=== PATIENT | female | born 1960 | race Caucasian/White ===

== ENCOUNTER 2019-10-13 10:57 | Observation (INO) ==
[2019-10-13 11:27] LABS: Basophils % 0.4 %; Eosinophils % 0.2 %; Hematocrit 36.9 % (35.3-44.9); Hemoglobin 11.9 g/dL (11.5-15.4); Immature Granulocytes % 0.5 % (0-4); Lymphocytes # 0.8 K/mcL (0.6-4.6); Lymphocytes % 9.8 %; Mean Corpuscular HGB Conc 32.2 g/dL (31.6-35.5); Mean Corpuscular Hemoglobin 28.3 pg (28.0-33.3); Mean Corpuscular Volume 87.9 fL (83.0-100.0); Mean Platelet Volume 11.1 fL (9.4-12.4); Monocytes # 1.1 K/mcL (0.0-1.3); Monocytes % 12.9 %; Neutrophils # 6.3 K/mcL (1.6-8.9); Platelet Count 149 K/mcL (140-400); Red Cell Distribution Width 18.7 % (11.5-14.5); Segmented Neutrophils % 76.2 %; White Blood Count 8.3 K/mcL (4.3-11.1)
[2019-10-13] MEDS ORDERED: Ondansetron 4 MG/2 ML VIAL IVP ONE (11:30)
[2019-10-13] MEDS ORDERED: *HR* FentaNYL (PF) 100 MCG/2 ML VIAL IVP ONE (11:30)
[2019-10-13] MEDS ORDERED: 0.9 % Sodium Chloride 1,000 ML IVC ONE (11:30)
[2019-10-13 11:34] LABS: Bilirubin,Urine Negative (Negative); Blood,Urine Small (Negative); Clarity,Urine Ex.Turbid (Clear); Color,Urine Yellow (Yellow); Glucose,Urine (UA) Normal (Normal); Ketones,Urine Negative (Negative); Leukocyte Esterase,Urine Large (Negative); Nitrite,Urine Positive (Negative); PH,Urine 5.5 pH Units (5.0-8.0); Protein,Urine 50 mg/dL (Neg-Trace); Specific Gravity,Urine 1.019 (1.010-1.025)
[2019-10-13 11:39] LABS: INR 1.5
[2019-10-13 11:41] LABS: Activated Partial Thrombo Time 32.1 Seconds (26.0-36.0)
[2019-10-13 11:44] LABS: Alanine Aminotransferase 16 Units/L (7-52); Albumin/Globulin Ratio 0.8 (1.1-2.2); Alkaline Phosphatase 110 Units/L (34-104); Aspartate Amino Transferase 17 Units/L (13-39); BUN/Creatinine Ratio 17 (6-26); Bilirubin,Direct 0.2 mg/dL (0.0-0.2); Bilirubin,Indirect 0.4 mg/dL (0.0-1.0); Bilirubin,Total 0.6 mg/dL (0.3-1.0); Blood Urea Nitrogen 19 mg/dL (6-20); Calcium 9.4 mg/dL (8.6-10.3); Carbon Dioxide 23 mEq/L (23-29); Chloride 98 mEq/L (98-107); Creatine Kinase 125 Units/L (30-223); Glucose 161 mg/dL (70-105); Lipase 39 Units/L (11-82); Osmolality,Calculated 278 (280-300); Potassium 2.7 mEq/L (3.5-5.1); Sodium 131 mEq/L (136-145); Troponin I < 0.03 ng/mL (< 0.04); eGFR For African Americans > 60 (> 60); eGFR For Non-African Americans 50 (> 60)
[2019-10-13 11:45] LABS: Bacteria,Urine Many per hpf (None-Few); RBC,Urine 0-3 per hpf (0-3); Squamous Epithelial Cell,Urine Moderate per hpf (None-Few); WBC,Urine 50-100 per hpf (0-3)
[2019-10-13] MEDS ORDERED: cephALEXin 500 MG CAPSULE PO STA (11:47)
[2019-10-13] MEDS ORDERED: cefTRIAXone 1,000 MG in Water for inj. (sterile) 10 ML IVP ONE (11:49)
[2019-10-13] MEDS ORDERED: Potassium Chloride Elixir 20 MEQ/15 ML UDC PO ONE (12:02)
[2019-10-13 12:20] LABS: Magnesium 2.2 mg/dL (1.6-2.6)
[2019-10-13] MEDS ORDERED: Perflutren Lipid Microsphere 1.3 ML in 0.9 % Sodium Chloride 8.7 ML IVP PRN (13:39)
[2019-10-13] MEDS ORDERED: Ondansetron 4 MG/2 ML VIAL IVP PRN (13:43)
[2019-10-13] MEDS ORDERED: Naloxone 0.4 MG/ML INJ IVP PRN (13:43)
[2019-10-13] MEDS ORDERED: SUMAtriptan succinate 50 MG TABLET PO PRN (13:58)
[2019-10-13] MEDS ORDERED: Acetaminophen/Aspirin/Caffeine TABLET PO PRN (13:58)
[2019-10-13] MEDS: *HR* Heparin 5,000 UNIT/ML VIAL SQ SCH (17:42)
[2019-10-13] MEDS: 0.9 % Sodium Chloride 1,000 ML IVC SCH (19:56)
[2019-10-13] MEDS: Topiramate 100 MG TABLET PO SCH (20:25)
[2019-10-13] MEDS: Acetaminophen 325 MG TABLET PO PRN (20:25)
[2019-10-13] MEDS: Sennosides 8.6 MG TABLET PO SCH (20:25)
[2019-10-14 01:34] LABS: Basophils % 0.4 %; Eosinophils # 0.1 K/mcL (0.0-0.6); Eosinophils % 1.9 %; Hematocrit 31.3 % (35.3-44.9); Immature Granulocytes % 0.4 % (0-4); Lymphocytes # 0.8 K/mcL (0.6-4.6); Lymphocytes % 15.1 %; Mean Corpuscular HGB Conc 31.6 g/dL (31.6-35.5); Mean Corpuscular Volume 88.7 fL (83.0-100.0); Mean Platelet Volume 11.3 fL (9.4-12.4); Monocytes # 0.8 K/mcL (0.0-1.3); Monocytes % 15.1 %; Neutrophils # 3.5 K/mcL (1.6-8.9); Platelet Count 138 K/mcL (140-400); Red Blood Count 3.53 M/mcL (3.82-4.97); Segmented Neutrophils % 67.1 %; White Blood Count 5.2 K/mcL (4.3-11.1)
[2019-10-14 01:36] LABS: Hemoglobin 9.9 g/dL (11.5-15.4)
[2019-10-14 01:51] LABS: BUN/Creatinine Ratio 17 (6-26); Blood Urea Nitrogen 14 mg/dL (6-20); Calcium 8.5 mg/dL (8.6-10.3); Carbon Dioxide 20 mEq/L (23-29); Chloride 108 mEq/L (98-107); Glucose 114 mg/dL (70-105); Osmolality,Calculated 281 (280-300); Potassium 2.8 mEq/L (3.5-5.1); Sodium 135 mEq/L (136-145); eGFR For African Americans > 60 (> 60); eGFR For Non-African Americans > 60 (> 60)
[2019-10-14] MEDS: *HR* Heparin 5,000 UNIT/ML VIAL SQ SCH ×2 (05:48→15:29)
[2019-10-14] MEDS: cefTRIAXone 1,000 MG in Water for inj. (sterile) 10 ML IVP SCH (08:21)
[2019-10-14] MEDS: 0.9 % Sodium Chloride 1,000 ML IVC SCH (08:24)
[2019-10-14] MEDS: Topiramate 100 MG TABLET PO SCH ×2 (08:32→19:59)
[2019-10-14] MEDS: BuPROPion SR (12 HR) 150 MG TABLET PO SCH (08:32)
[2019-10-14] MEDS ORDERED: Perflutren Lipid Microsphere 1.3 ML in 0.9 % Sodium Chloride 8.7 ML IVP PRN (11:18)
[2019-10-14] MEDS: Acetaminophen 325 MG TABLET PO PRN (15:28)
[2019-10-14] MEDS: Sennosides 8.6 MG TABLET PO SCH (19:58)
[2019-10-15] MEDS ORDERED: Benzonatate 100 MG CAPSULE PO PRN (00:52)
[2019-10-15 03:09] LABS: Hematocrit 30.3 % (35.3-44.9); Hemoglobin 9.6 g/dL (11.5-15.4); Mean Corpuscular HGB Conc 31.7 g/dL (31.6-35.5); Mean Corpuscular Hemoglobin 28.7 pg (28.0-33.3); Mean Corpuscular Volume 90.4 fL (83.0-100.0); Mean Platelet Volume 11.1 fL (9.4-12.4); Platelet Count 132 K/mcL (140-400); Red Blood Count 3.35 M/mcL (3.82-4.97); Red Cell Distribution Width 19.1 % (11.5-14.5); White Blood Count 3.2 K/mcL (4.3-11.1)
[2019-10-15 03:31] LABS: BUN/Creatinine Ratio 12 (6-26); Blood Urea Nitrogen 9 mg/dL (6-20); Calcium 8.7 mg/dL (8.6-10.3); Carbon Dioxide 19 mEq/L (23-29); Chloride 112 mEq/L (98-107); Glucose 140 mg/dL (70-105); Osmolality,Calculated 285 (280-300); Potassium 3.8 mEq/L (3.5-5.1); Sodium 137 mEq/L (136-145); eGFR For African Americans > 60 (> 60); eGFR For Non-African Americans > 60 (> 60)
[2019-10-15] MEDS: *HR* Heparin 5,000 UNIT/ML VIAL SQ SCH (05:51)
[2019-10-15] MEDS: cefTRIAXone 1,000 MG in Water for inj. (sterile) 10 ML IVP SCH (07:28)
[2019-10-15] MEDS: Topiramate 100 MG TABLET PO SCH (07:28)
[2019-10-15] MEDS: BuPROPion SR (12 HR) 150 MG TABLET PO SCH (07:28)
[2019-10-15 08:07] VITALS: BP 112/74
== END 2019-10-15 11:26 | disposition home or self-care (01) ==
LOC: EMEROOARM 10:57 → 3BNU 10:57
PROVIDERS: ADMIT Internal Medicine; ATTEND Internal Medicine